=== PATIENT | female | born 1960 | race Caucasian/White ===

== ENCOUNTER → 2021-08-24 18:04 | Outpatient (CLI) | payer SELFPAY ==
--- NOTE | ~2021-08-24 | XR_ITS ---
XR abdomen obstructive series DATE: 08/24/2021 18:59 INDICATION: Abdominal fullness TECHNIQUE: AP supine and upright views COMPARISON: None FINDINGS: The lung bases appear clear. There is no evidence of intraperitoneal free air. No viscerome holly is detected. The psoas shadows are intact. No significant abnormal calcification is noted. There is no evidence of bowel obstruction. There is a prominent amount fecal material in the colon. Scoliosis and degenerative changes of the thoracic and lumbar spine. IMPRESSION: Prominent amount of fecal material in the colon; no bowel obstruction Reviewed, dictated and finalized at [facility]. Reviewed, dictated and finalized at [facility]. IMPRESSION: Prominent amount of fecal material in the colon; no bowel obstructi on
--- NOTE | ~2021-08-24 | XR_ITS ---
XR cervical spine 4-5V DATE: 08/24/2021 18:59 INDICATION: Neck pain TECHNIQUE: AP, open-mouth, lateral and swimmer views COMPARISON: None FINDINGS: C1 and C2 are normally aligned and the odontoid process is intact. No fracture or dislocati on or locked facet or prevertebral soft tissue swelling. There is anterior spurring at C3 and especially C4, C5 and C6. There is moderate loss of interspace h eight at C6-7 consistent with degenerative disc disease. The remaining cervical interspaces are well preserved. IMPRESSION: Degenerative changes Reviewed, dictated and finalized at location [facility]. IMPRESSION: Degenerative changes
--- NOTE | ~2021-08-24 | XR_ITS ---
XR chest 2V DATE: 08/24/2021 18:59 INDICATION: Asthma. Neck pain TECHNIQUE: 2 views COMPARISON: None FINDINGS: Normal heart size. No hilar or mediastinal enlargement. No pulmonary infiltrate or consolid ation, pleural effusion or pulmonary vascular congestion or pneumothorax. Degenerative spurring of the thoracic spine. IMPRESSION: No active cardiopulmonary disease Reviewed, dictated and finalized at location [facility].
== END ==
PROVIDERS: PCP Family Medicine; Visit Provider Family Medicine
DX: J30.9 Allergic rhinitis, unspecified (principal); R19.8 Other specified symptoms and signs involving the digestive system and abdomen; M50.30 Other cervical disc degeneration, unspecified cervical region
CPT/HCPCS: 71046; 72050; 74019

== ENCOUNTER → 2021-10-02 13:20 | Outpatient (CLI) | payer SELFPAY ==
--- NOTE | ~2021-10-02 | DEXA_ITS ---
Bone Density Report Name: QUINCY YORK Age: 61 Sex: Female Ethnicity: White Date of : 1960 Indication: postmenopausal; screening for osteoporosis; height loss; asthma or emphysema; Referring Provider: Basil, Shawanda Mckee Study: Bone densitometry was performed. Exam Date: October 02, 2021 Accession number: [id number] Bone Density: Region BMD T-score Z-score Classification AP Spine (L1-L4) 1.291 2.2 3.6 Normal Femoral Neck (Left) 0.873 0.2 1.5 Normal Total Hip (Left) 1.178 1.9 2.9 Normal Femoral Neck (Right) 0.973 1.1 2.4 Normal Total Hip (Right) 1.223 2.3 3.2 Normal Total Hip Mean 1.201 2.1 3.1 Normal World Health Organization criteria for BMD impression classify patients as: Normal (T-score at or above -1.0), Osteopenia (T-score between -1.0 and -2.5), or Osteoporosis (T-score at or below -2.5). 10-year Fracture Risk: FRAX not reported because: All T-scores for Spine Total, Hip Total, Femoral Neck at or above -1.0 Clinical Information Provided by Patient: Has used the following medications: Vitamin D, MTV Has the following medical conditions: Asthma or Emphysema Patient maximum height was 67 Menopause Age: 54 No regular weight bearing exercise Drinks caffeinated beverages Onset of menses at age 16 Number of children 2 Impression: The patient has normal bone mass. Discussion: BONE DENSITY IS ABOVE THE MINIMUM DESIRABLE LEVEL AT ALL SKELETAL SITES TESTED. This patient?s bone mineral density is above the minimum desirable level (T-score -1.0 or better) at all sites measured. The patient should follow a healthful lifestyle (good nutrition with adequate calcium and vitamin D, and appropriate weight-bearing exercise). Follow-Up: Consider repeating this study in 5 years or sooner if there is some new clinical indication. Reported by: [facility] on 10/02/2021 2:00:00 PM. Reviewed, dictated and finalized at location AGely FROST
== END ==
PROVIDERS: PCP Family Medicine; Visit Provider Internal Medicine Endocrinology, Diabetes & Metabolism
DX: N95.9 Unspecified menopausal and perimenopausal disorder (principal)
CPT/HCPCS: 77080

== ENCOUNTER → 2022-02-13 10:39 | Outpatient (CLI) | payer SELFPAY ==
--- NOTE | ~2022-02-13 | XR_ITS ---
EXAMINATION: XR shoulder LT min 2V, XR shoulder RT min 2V DATE: 02/13/2022 11:35 INDICATION: Bilateral shoulder pain TECHNIQUE: 1. AP internally and externally rotated, AP oblique externally rotated and axillary views of the left shoulder were obtained. 2. AP internally and externally rotated, AP oblique externally rotated and axillary views of the righ t shoulder were obtained. COMPARISON: None FINDINGS: Normal alignment at both shoulders. No fracture. Bilateral glenohumeral joint spaces are normal. Mode rate bilateral acromioclavicular osteoarthritis with small inferiorly directed osteophytes. Soft tiss ues are unremarkable. Visualized portions of the lungs are clear. IMPRESSION: Moderate bilateral acromioclavicular osteoarthritis. Reviewed, dictated and finalized at location B. IMPRESSION: Moderate bilateral acromioclavicular osteoarthritis.
== END ==
PROVIDERS: PCP Family Medicine; Visit Provider Family Medicine
DX: M19.011 Primary osteoarthritis, right shoulder (principal); M19.012 Primary osteoarthritis, left shoulder
CPT/HCPCS: 73030

== ENCOUNTER 2023-01-07 15:02 | Outpatient (CLI) | payer SELFPAY | END 2023-01-07 15:03 | disposition home or self-care (01) | PROVIDERS: PCP Family Medicine | DX: M25.50 Pain in unspecified joint (principal); F41.9 Anxiety disorder, unspecified; R53.83 Other fatigue; I10 Essential (primary) hypertension; E78.5 Hyperlipidemia, unspecified; N92.6 Irregular menstruation, unspecified; R63.5 Abnormal weight gain; Z13.0 Encounter for screening for diseases of the blood and blood-forming organs and certain disorders involving the immune mechanism | CPT/HCPCS: 36415 ==